=== PATIENT | female | born 1995 | race Caucasian/White ===

== ENCOUNTER 2024-06-13 02:04 | Inpatient (IN) ==
[2024-06-13] MEDS: LACTATED RINGER'S 1,000 ML IV SCH (02:30)
[2024-06-13] MEDS: PENICILLIN GK 6 MU in DEXTROSE 5% 250 ML IV STA (02:42)
--- NOTE | 2024-06-13 02:49 | History & Physical Report ---
Date of Service June 13, 2024 Assessment & Plan (1) labor: (2) 36 weeks gestation of : Plan admit, iv, labs, plan epidural. fhts categ 1. pcn for gbs unknown. obtain gbs. History of Present Illness Chief Complaint: contractions Primary Care Provider: YUE PCP 28yo at 36+wks brandy presents to LD with labor contractions, pain. She has called through the evening of 06/12, first ? leak but then did not call back until 2nd call noted cramping. She said about 10min apart but although pad was not wet, noted occas trickle, offered LD evaluation at that time but she declined. Next call I got from her, she was on her way in. She arrived per nursing screaming and was difficult exam due to intolerance and was 5cm? No forebag felt. PNC uncomplicated but she is gbs unknown. PNL rh pos, ri. gbs unknown OBH:g1 GYNH: no stds Allergies Allergy/AdvReac Type Severity Reaction Status Date / Time No Known Allergies Allergy Verified 06/07/24 08:46 Home Medications Medication Instructions Recorded Confirmed Type prenat.vits,lisa,xba-csus-pczsw tab PO 11/12/23 06/07/24 History Patient History Family History Other Diabetes Hypertension Social History (Updated 11/12/23 @ 13:49 by Marilu Jones) Smoking Status: Never smoker Do You Dip or Chew Tobacco: No; Hx Alcohol Use: No Hx Substance Use: No marital status: marital status details: Anibal (28) [phone] Current Living Situation Comment: Spouse, 1 dog current occupational status: employed current occupation: truck sales representative of [employer] as per Subjective / HPI Physical Exam Constitutional: WD/WN, vitals as above Neurologic: grossly normal Psychiatric: A+Ox3, euthymic affect Genitourinary: Manual OB Exam: + cervical dilation 5 cm OB Exam Monitor Tracing: + external FHT monitor used, + external uterine monitor used (q3), + category I, + normal FHT variability and + early decelerations present Results & Data Vital Signs (Past 12 Hours) Vital Signs Pulse BP 06/13/24 02:17 62 133/93 Coding Level of Care Code None Diagnoses labor O60.00 36 weeks gestation of Z3A.36
[2024-06-13 03:20] LABS: Hematocrit (blood only) 37.8 % (37.0-47.0); Mean Corpuscular Hemoglobin 32.9 pg (25.0-34.0); Mean Corpuscular Hgb Conc 34.4 g/dL (32.0-36.0); Mean Corpuscular Volume 95.7 fL (80.0-100.0); Mean Platelet Volume 13.7 fL (9.4-12.4); Platelet Count 115 K/uL (130-400); RDW Coefficient of Variation 12.3 % (11.5-14.5); RDW Standard Deviation 43.3 fL (36.4-46.3); Red Blood Count 3.95 M/uL (4.20-5.40); White Blood Count 10.43 K/ul (4.8-10.8)
[2024-06-13] MEDS: OXYTOCIN 10 UNITS/ML 10ML VIAL IM ONE (03:47)
[2024-06-13] MEDS: OXYTOCIN 30 UNITS/NSS 30 UNITS/500 ML BAG IV PRN (03:49)
[2024-06-13] MEDS: miSOPROStoL 200 MCG TAB PR ONE (03:51)
[2024-06-13] MEDS: LIDOCAINE 1% LOCAL 20 ML VIAL INFIL PRN (04:00)
--- NOTE | 2024-06-13 04:00 | Delivery Summary ---
Vaginal Delivery Summary Date of Service June 13, 2024 Vaginal Delivery Summary The patient dilated to complete and pushed to deliver a viable male Apgars 8 and 9 via over intact perineum. Shoulders and body delivered with ease. was vigorous and crying at . Nose and mouth bulb suctioned. Cord clamped at 30 seconds of life and to maternal abdomen where the cord was then doubly clamped and cut. Placenta delivered spontaneously and intact, three-vessel cord. Hemostasis not achieved with IM pitocin and uterine massage and therefore dilute pitocin begun and 1000mcg rectal cytotec given. Bilateral labia lacerations repaired with 3-0 vicryl in interrupted sutures. Hemostasis improved. Cervix and sulci intact. QBL 436 cc. Mother and baby stable in recovery. [facility] Vaginal Delivery Charge Delivery Type Details:
[2024-06-13] MEDS ORDERED: ACETAMINOPHEN 325 MG TAB PO PRN (04:09)
[2024-06-13] MEDS ORDERED: OXYTOCIN 30 UNITS/NSS 30 UNITS/500 ML BAG IV PRN (04:09)
[2024-06-13] MEDS ORDERED: oxyCODONE/ACETAMINOPHEN 5mg/325mg TAB PO PRN (04:09)
[2024-06-13] MEDS ORDERED: HYDROCORTISONE ACETATE 25 MG SUPP PR PRN (04:09)
[2024-06-13] MEDS: fentaNYL citrate PF 100 MCG/2 ML VIAL ONE (04:23)
[2024-06-13] MEDS: fentANYL 2 MCG/ML BUPIVacaine 0.125%-NSS 100ML BAG ONE (04:23)
[2024-06-13] MEDS: BUPIVACAINE 0.25% PF 30 ML VIAL ONE (04:23)
[2024-06-13] MEDS: ePHEDrine sulfate 50 MG/ML AMP ONE (04:23)
[2024-06-13] MEDS: DIPHTHER/TETAN/PERTUS Vaccine (Tdap, Adol/Adult) 0.5mL IM ONE (04:24)
[2024-06-13] MEDS: SODIUM CHLORIDE 0.9% PF INJ 10 ML VIAL ONE (04:24)
[2024-06-13] MEDS: IBUPROFEN 600 MG TAB PO PRN (04:32)
[2024-06-13] MEDS: BENZOCAINE 20% SPRY 85 APPLN/85 GM CAN EXT PRN (04:32)
[2024-06-13] MEDS: LIDOCAINE 2%/EPINEPHRINE 1:200,000 20 ML PF ONE (04:41)
[2024-06-13] MEDS ORDERED: PENICILLIN GK 3 MU in DEXTROSE 5% 100 ML IV PRN (05:26)
[2024-06-13] MEDS: PRENATAL VITAMIN 1 TAB PO SCH (08:29)
[2024-06-13] MEDS: DOCUSATE SODIUM 100 MG CAP PO SCH (08:29)
[2024-06-13 20:01] VITALS: O2SAT 98
--- NOTE | 2024-06-14 05:43 | Obstetrical Progress Note ---
Date of Service June 14, 2024 Assessment & Plan (1) care and examination: Plan PPD1: Stable, continue routine care, continue OOB and ambulation, diet as tolerated Plan for DC once baby is cleared by peds Admission and Anticipated Discharge Date Admission Date: June 13, 2024 Supervising Physician Co-Signing Physician Notes Resident Physician Supervision Note: I interviewed and examined the patient. Discussed with Dr. Peter and agree with findings and plan as documented in the note. Any exceptions or clarifications are listed here: PPD1 doing well. Desires DC home as long as baby is able to go home. Reviewed instructions, followup 6w PP. Documented By: DO Paulino Shirley Gladis is a 28 y/o female who is PPD#1 following at 36 6/7 weeks. Minimal pain, is voiding, tolerating meals, ambulating normally Having appropriate lochia Currently breast feeding. Review of Systems 2 Constitutional: no fever, no chills and no sweats Respiratory: no dyspnea Cardiovascular: no chest pain, no palpitations and no calf pain Genitourinary: no dysuria Neurologic: no headache(s) Physical Exam 2 Physical Exam: General: Alert, oriented. No acute distress. Cardiac: Regular rate and rhythm, no murmurs, rubs, or gallops. Respiratory: Clear to auscultation bilaterally, no wheezes/rales/rhonchi. No increased work of breathing. Symmetrical chest rise. No respiratory distress. Abdomen: Soft, nontender, nondistended. Bowel sounds present. Uterus: Uterine fundus firm, palpable at level of umbilicus. Lower extremities: No lower extremity edema or swelling. No deep calf pain. Results & Data Vital Signs (Past 12 Hours) Vital Signs Temp Pulse Resp BP Pulse Ox O2 Del Method 06/14/24 03:05 36.6 C 64 18 129/83 98 Room Air 06/13/24 23:15 36.6 C 58 L 18 124/79 98 Room Air 06/13/24 19:35 36.7 C 64 18 131/86 98 Room Air Laboratory Results 06/13/24 02:56 Resident Activity Tracking Resident Involvement: Resident Care Provided Care Provided: Adult [facility]
[2024-06-14 06:31] LABS: Hemoglobin 11.4 g/dl (12.0-16.0)
[2024-06-14 10:29] VITALS: RESP 16; TEMP 98.1
[2024-06-14 10:34] VITALS: BP 128/80; PULSE 68
[2024-06-14] MEDS ORDERED: bisacodyL 5 MG TABEC PO SCH (20:00)
== END 2024-06-14 18:08 | disposition home or self-care (01) | DRG 807 ==
LOC: OPB 02:04 → 4S1 02:07 → 4E2 06:20